=== PATIENT | male | born 1980 | race Caucasian/White ===

== ENCOUNTER 2024-10-11 20:04 | Emergency (ER) | payer SELFPAY ==
[~2024-10-11] VITALS: Ht 165.1 cm; Wt 69.0 kg
[2024-10-11 20:11] VITALS: BP 128/84; PULSE 84; RESP 16; TEMP 98.7; O2SAT 98
== END 2024-10-11 21:07 | disposition left against medical advice (07) ==
LOC: ER 20:04
DX: R07.81 Pleurodynia (principal); Z53.21 Procedure and treatment not carried out due to patient leaving prior to being seen by health care provider
CPT/HCPCS: 99283